=== PATIENT | female | born 1965 | race Caucasian/White ===

== ENCOUNTER 2017-03-19 07:31 | Inpatient (IN) | payer OTHER ==
[~2017-03-19] VITALS: Ht 157.5 cm; Wt 92.3 kg
[~2017-03-19 07:31] MED LIST: AUGM875 PO; B12 IM; CLIN150 PO; DARV PO; DILA2TAB4 PO; LEVA500T33 PO
[2017-03-19] MEDS ORDERED: CHLORHEXIDINE GLUCONATE 2 % 1 PACK (2 CLOTHS) TOPICAL PRN (08:00)
[2017-03-19] MEDS ORDERED: METOPROLOL TARTRATE 25 MG TAB PO PRN (08:00)
[2017-03-19] MEDS ORDERED: INSULIN HUMAN REGULAR 1,000 UNITS/10 ML VIAL SQ PRN (08:00)
[2017-03-19] MEDS ORDERED: POVIDONE IODINE 5% (ANTISEPSIS KIT) 4 APPLICATIONS EACH NARE PRN (08:00)
[2017-03-19] MEDS ORDERED: LACTATED RINGER'S 1000 ML IV PRN (08:00)
[2017-03-19] MEDS ORDERED: SODIUM CHLORID 0.9% 500 ML IV PRN (08:00)
[2017-03-19] MEDS ORDERED: TRAM50TA PO (08:13)
[2017-03-19] MEDS ORDERED: HYDR-3133 PO (08:13)
[2017-03-19] MEDS ORDERED: ALPR.5 PO (08:13)
[2017-03-19] MEDS ORDERED: metroNIDAZOLE 500 MG INJ 100 ML IV SCH (08:15)
[2017-03-19] MEDS ORDERED: VANCOMYCIN 1,250 MG/NS 250 ML (for 70-84 kg) IV SCH ×2 (08:15)
[2017-03-19] MEDS ORDERED: ONDANSETRON HCL 4 MG/2 ML VIAL IV PUSH SCH (08:15)
[2017-03-19] MEDS ORDERED: APREPITANT 40 MG CAP PO SCH (08:15)
[2017-03-19] MEDS ORDERED: ACETAMINOPHEN 1000 MG/100 ML VIAL IV SCH (08:15)
[2017-03-19] MEDS ORDERED: BUPIVACAINE/EPINEPHRINE 0.25% 50 ML VIAL ONE (11:44)
[2017-03-19] MEDS ORDERED: FAMOTIDINE 20 MG/2 ML VIAL ONE (11:57)
[2017-03-19] MEDS ORDERED: MIDAZOLAM HCL 2 MG/2 ML VIAL ONE (11:57)
[2017-03-19] MEDS ORDERED: DEXAMETHASONE SOD PHOS 4 MG/ML VIAL ONE (11:58)
[2017-03-19] MEDS ORDERED: LACTATED RINGER'S 1000 ML INJ 1,000 ML IV ONE (13:02)
[2017-03-19] MEDS ORDERED: PROPOFOL 200 MG/20 ML AMP IV ONE (13:02)
[2017-03-19] MEDS ORDERED: NEOSTIGMINE 3 MG/3 ML SYR IV ONE (13:02)
[2017-03-19] MEDS ORDERED: METOCLOPRAMIDE HCL 10 MG/2 ML VIAL IVS PRN (14:30)
[2017-03-19] MEDS ORDERED: Post-op Orders (for Pharmacy) MISC XX ONE (14:30)
[2017-03-19] MEDS ORDERED: SODIUM CHLORIDE 0.9% FLUSH 10 ML FLUSH IV FLUSH PRN (14:30)
[2017-03-19] MEDS ORDERED: DO NOT ADM ANY ANTICOAGULANT DRUGS PRN (14:42)
[2017-03-19] MEDS ORDERED: *morphine SULFATE 8 MG/ML PERIprocedure ONLY ONE ×3 (14:55→15:45)
[2017-03-19] MEDS ORDERED: MAGNESIUM HYDROXIDE SUSP 30 ML CUP PO PRN (17:00)
[2017-03-19] MEDS ORDERED: ONDANSETRON HCL 4 MG/2 ML VIAL IV PRN (17:00)
[2017-03-19] MEDS ORDERED: KETOROLAC TROMETHAMINE 30 MG/ML (IVP) VIAL IVP PRN (17:00)
[2017-03-19] MEDS: SODIUM CHLOR 0.9% 1000 ML INJ 1,000 ML IV SCH (17:00)
[2017-03-19] MEDS: KETOROLAC TROMETHAMINE 30 MG/ML (IVP) VIAL IVP PRN (17:01)
[2017-03-19] MEDS ORDERED: DIMETHICONE/OXYBENZONE/PADMIATE LIP BALM 4.25 GM TOPICAL ONE (17:22)
[2017-03-19] MEDS ORDERED: diphenhydrAMINE HCL 25 MG CAP PO PRN (18:00)
[2017-03-19] MEDS ORDERED: ZOLPIDEM TARTRATE 5 MG TAB PO PRN (18:00)
[2017-03-19] MEDS: HYDROmorphone HCL PF 1 MG/ML VIAL IV PRN (18:57)
[2017-03-19 20:00] VITALS: BP 125/58; PULSE 60; RESP 16; TEMP 96.2; O2SAT 94
[2017-03-19] MEDS: SODIUM CHLORIDE 0.9% FLUSH 10 ML FLUSH IV FLUSH SCH (20:48)
[2017-03-19] MEDS: metroNIDAZOLE 500 MG INJ 100 ML IV SCH (20:58)
[2017-03-20] VITALS (8 sets, daily range): BP systolic 112–127; BP diastolic 55–75; PULSE 60–88; RESP 16–20; TEMP 96.5–97.9; O2SAT 92–98
[2017-03-20] MEDS: KETOROLAC TROMETHAMINE 30 MG/ML (IVP) VIAL IVP PRN ×3 (00:56→19:48)
[2017-03-20] MEDS: SODIUM CHLOR 0.9% 1000 ML INJ 1,000 ML IV SCH ×3 (03:00→20:23)
[2017-03-20] MEDS: metroNIDAZOLE 500 MG INJ 100 ML IV SCH ×2 (05:00→11:27)
[2017-03-20] MEDS: HYDROmorphone HCL PF 1 MG/ML VIAL IV PRN ×2 (05:17→22:00)
[2017-03-20] MEDS: SODIUM CHLORIDE 0.9% FLUSH 10 ML FLUSH IV FLUSH SCH ×2 (09:00→20:23)
[2017-03-20] MEDS ORDERED: SCOPOLAMINE 1.5 MG PATCH T-DERMAL ONE (13:00)
[2017-03-20] MEDS ORDERED: METOCLOPRAMIDE HCL SYRUP 10 MG/10 ML UDC PO PRN (13:00)
--- NOTE | 2017-03-20 13:05 | HHI.PR ---
Subjective Subjective Notes Laying in bed C/O increased nausea Pain controlled with medication Objective Vitals/I&O Vital Signs Date Time Temp Pulse Resp B/P (MAP) Pulse Ox O2 Delivery O2 Flow Rate FiO2 03/20/17 08:00 96.5 60 18 119/60 (79) 92 03/19/17 18:00 Nasal Cannula 2 Cardiovascular: Regular Lungs: Rhonchi Abdomen: Post-op tenderness Extremities: Perfused Wound Wound : Wound Location: Abdomen Appearance: Clean & Dry A/P Assessment and Plan 52yo female POD#1 laparoscopic small bowel resection. Significant history of Gastric Bypass in 1995 -D/C jaimes -Add Reglan and Scopolamine for nausea -Nebs Q6 -Ambulate at least QID -Advance to full liquids The exam, history, and the medical decision-making described in the above note were completed with the assistance of the mid-level provider. I reviewed and agree with the findings presented. I attest that I had a [id number] encounter with the patient on the same day, and personally performed and documented my assessment and findings in the medical record. Discharge Planning D/C home tomorrow Catarino Cruz Mar 20, 2017 13:05 Jeovanny Boo MD Apr 08, 2017 16:29
[2017-03-20] MEDS ORDERED: ENOXAPARIN SODIUM 40 MG/0.4 ML SYRINGE SQ SCH (14:00)
[2017-03-20] MEDS ORDERED: ALPRAZolam 0.5 MG TAB PO PRN (14:15)
[2017-03-20] MEDS: RESP: ALBUTEROL 1.25 MG/3 ML NEB (SCH) NEB (16:54)
[2017-03-20] MEDS: hydrOXYzine HCL 25 MG TAB PO SCH (20:23)
[2017-03-21] VITALS: BP 115/59; PULSE 68; RESP 18; TEMP 97.8; O2SAT 94
[2017-03-21] MEDS: RESP: ALBUTEROL 1.25 MG/3 ML NEB (SCH) NEB ×2 (05:03→09:09)
[2017-03-21 05:06] VITALS: O2SAT 95
[2017-03-21 08:00] VITALS: BP 115/67; PULSE 91; RESP 17; TEMP 98.8; O2SAT 92
[2017-03-21] MEDS ORDERED: DILA2TAB2 PO (08:00)
[2017-03-21] MEDS: KETOROLAC TROMETHAMINE 30 MG/ML (IVP) VIAL IVP PRN (08:25)
[2017-03-21] MEDS: hydrOXYzine HCL 25 MG TAB PO SCH (08:25)
[2017-03-21] MEDS: SODIUM CHLORIDE 0.9% FLUSH 10 ML FLUSH IV FLUSH SCH (08:26)
[2017-03-21 09:11] VITALS: O2SAT 92
[2017-03-23] MEDS ORDERED: REMOVE OLD SCOPOLAMINE PATCH T-DERMAL SCH (13:30)
--- NOTE | 2017-04-11 11:27 | MP ---
cc: YAAKOV PACHECO DATE OF SURGERY: 03/19/2017 DATE OF : 1965 PREOPERATIVE DIAGNOSIS Abdominal pain with history of intussusception. POSTOPERATIVE DIAGNOSIS Abdominal pain with history of intussusception. PROCEDURE Laparoscopy with resection of jejunojejunostomy with recreation distally. SURGEON Yaakov Pacheco. GETTER FILLER SURGEON Santino Lyle. Dr. Santino Lyle's assistance was necessary for the procedure due to the complexity of the procedure. Dr. Lyle was utilized for exposure and manipulation during the procedure. Dr. Lyle was present for the entire procedure. The executive chef assistant provided by [employer] was utilized on the back table and managed the camera during the procedure. ANESTHESIA General endotracheal. ESTIMATED BLOOD LOSS Scant. FINDINGS At the patient's jejunojejunostomy there appeared to be chronic changes proximal to this as though this was in the area where the bowel could have been telescoping into itself. The biliopancreatic limb was dilated in this region as well as the Colleen site of the anastomosis. It was decided to resect this jejunojejunostomy and create a new one distally. SPECIMENS None. COMPLICATIONS None. OPERATION The patient was brought to the operating room and placed on the operating table in a supine position. Bilateral sequential inflation devices were placed on the lower extremities. General anesthesia was instituted. A Wu catheter was placed. Antibiotics were initiated. The abdomen was prepped and draped sterilely. A point in the left upper quadrant was anesthetized with 0.25% Marcaine with epinephrine. A skin incision was made. A 5 mm OptiView port was placed under direct vision and pneumoperitoneum created. Under direct vision an additional 5 mm left upper quadrant port was placed. There were adhesions in the midline that were using sharp and blunt dissection. Following this a 12 mm port was placed in the right upper quadrant and an additional 5 mm port placed in the right upper quadrant. The abdominal cavity was inspected with findings as above. There was no evidence of internal hernia, no evidence of dilated Colleen limb or sites of obstruction other than at the jejunojejunostomy. So attention was focused in this region. A powered Alba Flex stapler was used to separate the jejunojejunostomy. The devitalized segment of the biliopancreatic limb was then divided at healthy tissue. The Harmonic scalpel was used to divide the mesentery and the small bowel was retrieved from the peritoneal cavity in an Endopouch. In the jejunojejunostomy care was taken not to narrow the Colleen limb. The bowel was then inspected distally, a distance of 40 cm, and in this region a new jejunojejunostomy was created. This was a [id number] anastomosis in the usual manner. The mesenteric defect in this region was closed with 2-0 Surgidac suture in a running manner. The operative field was inspected and hemostasis was present. At this point the operation was terminated. CO2 was released. All ports were removed. All skin incisions were closed with 4-0 Monocryl. The abdominal wall was cleaned and a sterile dressing placed. The patient was awakened and taken to the recovery room. MD EMILIA Harry/BT /2:20 AM /11:07 AM
== END 2017-03-21 11:52 | disposition home or self-care (01) | DRG 349 ==
LOC: HSDI 07:31 → N07B 18:21
PROVIDERS: ADMIT Surgery; ATTEND Surgery
PROC: 0DBA4ZZ Excision of Jejunum, Percutaneous Endoscopic Approach (ICD-10-PCS; principal; 2017-03-19 12:03)
DX: K56.1 Intussusception (principal); Z98.84 Bariatric surgery status
CPT/HCPCS: 88307; 94150; 94640; 94664; J0131; J0690; J1100; J1170; J1885; J2250; J2270; J2405; J2710; J3010; J3370; J7030; J7050; J7120; J7613; J8501